=== PATIENT | female | born 1985 | race Hispanic/Latino ===

== ENCOUNTER 2017-01-29 22:33 | Emergency (ER) | payer MEDICAID ==
--- NOTE | 2017-01-29 23:14 | Emergency Department Report ---
ED Alcohol HPI - General Chief Complaint: Alcohol Stated Complaint: AMS Time Seen by Provider: 01/29/17 23:13 Source: EMS (ems notes not available at time of chart dictation) Limitations: Other (intoxicated) - History of Present Illness Initial Comments: This is a 31-year-old female. She is previously unknown to me. History is obtained by speaking to her 2 neighbors, Ms. Hasmukh Wallace; [phone], and Marlin Humphries; [phone]. As per the patient's to neighbors, the patient has a history of alcohol dependency and chronic intoxication. The neighbors brought the patient to a local psychiatric facility for alcohol dependence and intoxication. Apparently while in the waiting room there, the neighbors report that the patient swooned, but did not fall or lose consciousness, did not hit her head. They were instructed to bring the patient to the ER for medical clearance. The patient is grossly intoxicated and denies complaints. She denies chest pain, abdominal pain, headache, homicidality, suicidality. As per the patient's to neighbors, the patient does have a history of seizures, was admitted to a hospital a few weeks ago, they're not sure why. MD Complaint: alcohol intoxication, alcohol dependence Last Drink: unknown Chronic Alcohol Use: Yes Associated Symptoms: denies: abdominal pain, depression, suicidality - Related Data Allergies Allergy/AdvReac Type Severity Reaction Status Date / Time No Known Allergies Allergy Unverified 01/29/17 23:43 ED Review of Systems ROS: Stated complaint: AMS Other details as noted in HPI Comment: Unobtainable due to pts medical conditions Psychiatric: denies: homicidal thoughts, suicidal thoughts ED Physical Exam - General Limitations: Other (intoxicated, etoh on breath) General appearance: alert, in no apparent distress - Head Head exam: Present: atraumatic, normocephalic - Eye Eye exam: Present: normal appearance, EOMI. Absent: nystagmus - ENT ENT exam: Present: normal exam, normal orophraynx, mucous membranes moist, normal external ear exam - Neck Neck exam: Present: normal inspection, full ROM. Absent: tenderness, meningismus - Respiratory Respiratory exam: Present: normal lung sounds bilaterally. Absent: respiratory distress, wheezes, rales, rhonchi, stridor, chest wall tenderness, accessory muscle use, decreased breath sounds, prolonged expiratory - Cardiovascular Cardiovascular Exam: Present: regular rate, normal rhythm, normal heart sounds. Absent: bradycardia, tachycardia, irregular rhythm, systolic murmur, diastolic murmur, rubs, gallop - GI/Abdominal GI/Abdominal exam: Present: soft, normal bowel sounds. Absent: distended, tenderness, guarding, rebound, rigid, pulsatile mass - Extremities Exam Extremities exam: Present: normal inspection, full ROM, normal capillary refill. Absent: tenderness, pedal edema, joint swelling, calf tenderness - Back Exam Back exam: Present: normal inspection, full ROM. Absent: tenderness, CVA tenderness (R), CVA tenderness (L), muscle spasm, paraspinal tenderness, vertebral tenderness - Neurological Exam Neurological exam: Present: oriented X3, other (Extraocular movements intact. Tongue midline. No facial droop. Facial sensation intact to light touch in the V1, V2, V3 distribution bilaterally. 5 and 5 strength in 4 extremities.. Sensation is intact to light touch in 4 extremities.) - Psychiatric Psychiatric exam: Present: normal affect, normal mood. Absent: homicidal ideation, suicidal ideation - Skin Skin exam: Present: warm, dry, intact, normal color. Absent: rash ED Course Vital Signs 01/29/17 01/29/17 01/29/17 23:06 23:10 23:17 Temperature 98.9 F Pulse Rate 79 Respiratory Rate Blood Pressure 107/71 107/71 107/71 Blood Pressure [Left] O2 Sat by Pulse 98 98 Oximetry 01/29/17 01/29/17 01/29/17 23:20 23:29 23:31 Temperature Pulse Rate Respiratory 18 Rate Blood Pressure 99/59 107/71 Blood Pressure [Left] O2 Sat by Pulse 83 L Oximetry 01/29/17 01/29/17 01/30/17 23:38 23:55 00:43 Temperature Pulse Rate Respiratory 18 Rate Blood Pressure 107/71 107/71 Blood Pressure [Left] O2 Sat by Pulse Oximetry 01/30/17 01/30/17 01/30/17 01:04 01:49 01:50 Temperature Pulse Rate Respiratory Rate Blood Pressure 107/71 107/71 98/66 Blood Pressure [Left] O2 Sat by Pulse Oximetry 01/30/17 01/30/17 01/30/17 01:59 02:02 02:45 Temperature 98 F Pulse Rate 74 Respiratory 18 Rate Blood Pressure 106/65 94/54 Blood Pressure 106/75 [Left] O2 Sat by Pulse 100 98 Oximetry 01/30/17 01/30/17 01/30/17 03:00 03:15 03:21 Temperature Pulse Rate Respiratory Rate Blood Pressure 90/55 85/53 87/54 Blood Pressure [Left] O2 Sat by Pulse 99 Oximetry 01/30/17 01/30/17 01/30/17 03:30 03:54 04:43 Temperature Pulse Rate Respiratory Rate Blood Pressure 89/53 99/63 95/59 Blood Pressure [Left] O2 Sat by Pulse 96 Oximetry 01/30/17 01/30/17 01/30/17 04:50 05:00 05:10 Temperature Pulse Rate Respiratory Rate Blood Pressure 87/56 85/58 85/58 Blood Pressure [Left] O2 Sat by Pulse 99 100 99 Oximetry 01/30/17 01/30/17 01/30/17 05:20 05:30 05:40 Temperature Pulse Rate Respiratory Rate Blood Pressure 87/60 87/49 87/49 Blood Pressure [Left] O2 Sat by Pulse 99 99 99 Oximetry 01/30/17 01/30/17 01/30/17 05:50 06:00 06:10 Temperature Pulse Rate Respiratory Rate Blood Pressure 84/55 87/50 84/55 Blood Pressure [Left] O2 Sat by Pulse 98 97 Oximetry 01/30/17 01/30/17 01/30/17 06:20 06:30 06:40 Temperature Pulse Rate Respiratory Rate Blood Pressure 89/58 91/56 91/56 Blood Pressure [Left] O2 Sat by Pulse 97 98 98 Oximetry 01/30/17 01/30/17 01/30/17 06:50 07:00 09:03 Temperature Pulse Rate 109 H Respiratory 16 Rate Blood Pressure 90/58 90/59 Blood Pressure 93/66 [Left] O2 Sat by Pulse 98 98 98 Oximetry - Reevaluation(s) Reevaluation #1: 01/29/17 23:49 differential diagnosis: Alcohol intoxication, polysubstance abuse, medical clearance for psychiatric placement Assessment and plan: 31-year-old female who is alcohol intoxicated, brought to the hospital by neighbors for alcohol intoxication. Uncertain if she fell prior to arrival. The neighbors do not think that she fell. Patient has a nonfocal neurologic examination. She does not require 1013 at this time. She is somewhat agitated. required Valium. She is not homicidal or suicidal. We will check basic laboratory studies, noncontrast CT scan of the brain and cervical spine. We will reassess. Reevaluation #2: 01/30/17 05:29 CT scan of the brain and cervical spine negative. The crisis team is paged. At this point in time, I see no immediate medical contraindication to detox therapy. ED Medical Decision Making - Lab Data Result diagrams: 01/29/17 23:36 01/29/17 23:36 - EKG Data -: EKG Interpreted by Me EKG shows normal: sinus rhythm, axis, intervals, QRS complexes, ST-T waves - EKG Data When compared to previous EKG there are: previous EKG unavailable - Radiology Data Radiology results: pending CT scan of the brain and cervical spine negative Critical care attestation.: If time is entered above; I have spent that time in minutes in the direct care of this critically ill patient, excluding procedure time. ED Disposition Clinical Impression: Alcohol intoxication Qualifiers: Complication of substance-induced condition: uncomplicated Qualified Code(s): F10.920 - Alcohol use, unspecified with intoxication, uncomplicated Disposition: DC/TX PSY HOSP/PSY UNIT Is pt being admited?: No Does the pt Need Aspirin: No Condition: Good Referrals: PRIMARY CARE, [Primary Care Provider] - 3-5 Days
[2017-01-29] MEDS ORDERED: VALIUM ONE (23:30)
[2017-01-29] MEDS ORDERED: VALIUM IV ONE (23:35)
[2017-01-30 00:02] LABS: Hematocrit 42.1 % (30.3-42.9); Mean Corpuscular HGB Conc 33 % (30-34); Mean Corpuscular Hemoglobin 32 pg (28-32); Mean Corpuscular Volume 96 fl (79-97); Platelet Count 233 K/mm3 (140-440); Red Blood Count 4.37 M/mm3 (3.65-5.03); Red Cell Distribution Width 13.6 % (13.2-15.2); White Blood Count 6.6 K/mm3 (4.5-11.0)
[2017-01-30 00:15] LABS: BUN/Creatinine Ratio 7.14; Blood Urea Nitrogen 5 mg/dL (7-17); Carbon Dioxide 24 mmol/L (22-30); Chloride 107.8 mmol/L (98-107); Glucose 96 mg/dL (65-100); Sodium 147 mmol/L (137-145)
[2017-01-30 00:18] LABS: Anion Gap 19 mmol/L
--- NOTE | 2017-01-30 02:05 | Admit Criteria Form ---
Admission Criteria Documentation: SUBSTANCE ABUSE Clinical Indications for Admission to Inpatient Care (Place 'X' for any and all applicable criteria): Admission is indicated due to ANY ONE of the following(1)(2)(3)(4)(5): [ ]I. Delirium due to alcohol or sedative A withdrawal B ( Also use Delirium Criteria as appropriate)1,6,7 [ ]II. Alcohol or sedative withdrawal with high-risk indicator as manifested by ALL of the following1,3,6,7 [ ]a) Signs of withdrawal as indicated by ANY ONE of the following: [ ]i) Heart rate greater than 100 beats per minute [ ]ii) Nausea or vomiting [ ]iii) Other physical signs of alcohol or sedative withdrawal [ ]iv) Tremor [ ](v) Increased perspiration [ ]b) Elevated risk due to a historical or comorbid factor as indicated by ANY ONE of the following: [ ]i) History of delirium due to alcohol or sedative withdrawal [ ]ii) History of repetitive seizures due to alcohol or sedative withdrawal C [ ]iii) Intrinsic seizure disorder (epilepsy) [ ]iv) [ ]v) Comorbid medical condition that can be dangerously destabilized by alcohol or sedative withdrawal (eg, severe cardiac disease) [ ]III. Severe alcohol or sedative withdrawal that is unmanageable at lower level of care, as manifested by ALL of the following1,3,6,7 [ ]a) Marked signs of withdrawal as indicated by ANY ONE of the following: [ ]i) Heart rate greater than 120 beats per minute [ ]ii) Vomiting [ ]iii) Grossly visible tremor [ ]iv) Profuse perspiration [ ]v) Temperature greater than 38.3 degrees C (101 degrees F) [ ]vi) Other marked physical signs of alcohol or sedative withdrawal [ ]b) Signs of withdrawal which require inpatient treatment as indicated by ANY ONE of the following: [ ]i) Inadequate response to pharmacotherapy in emergency department or other appropriate lower level of care [ ]ii) Lower level of care not feasible or appropriate (eg, unavailable or inappropriate to patient condition or treatment history) [ ]IV. Severely complicated opioid withdrawal that requires ezzlez-thc-swwic care as manifested by ALL of the following 1,4,7,11 [ ]a) Vomiting or diarrhea due to opioid withdrawal [ ]b) Marked dehydration or electrolyte abnormality that cannot be corrected (to near normal) in an emergency department or other ambulatory setting (eg, serum K<2.5 mEq/L , serum Na <130 mEq/L [ X]V. Acute toxicity or instability from substance use requiring inpatient care (eg, altered mental status, respiratory depression) that has had inadequate response to, or is judged inappropriate for, treatment at lower level of care (eg, emergency department, observation care) [ ]. Other inpatient medical or psychiatric care is needed due to risk or comorbidity as indicated by ALL of the following(18): [ ]a) Treatment is needed because of patient risk due to ANY ONE of the following: [ ]i) Medical condition (eg, severe cardiac disease) that requires 24-hour monitoring and treatment due to danger of destabilization by alcohol or sedative withdrawal is present [ ]ii) Imminent danger to self is present due to ANY ONE of the following(19)(20)(21): [ ]1) Imminent risk for recurrence of Suicide attempt or act of serious Harm to self is present as indicated by ALL of the following: [ ]A. There has been very recent Suicide attempt or deliberate act of serious Harm to self. [ ]B. There has not been Sufficient relief of the factors that precipitated the attempt or act. [ ]2) Current plan for suicide or serious Harm to self is present. [ ]3) Command auditory hallucinations for suicide or serious Harm to self are present. [ ]4) Patient has persistent Thoughts of suicide or serious Harm to self that cannot be adequately monitored at lower level of care due to ANY ONE of the following[E]: [ ]A. Insufficient behavioral care is available to meet patient needs (such as required provider or lower level facility is not available). [ ]B. Patient characteristics such as high impulsivity or unreliability are present. [ ]C. Environment does not support recovery. [ ]D. Ready access to lethal means [ ]iii) Imminent danger to others is present due to ANY ONE of the following(19)(23)(24): [ ]1) Imminent risk for recurrence of attempt to seriously Harm another is present as indicated by ALL of the following: [ ]A. There has been very recent attempt to seriously Harm another. [ ]B. There has not been Sufficient relief of factors that precipitated the attempt or act. [ ]2) Current plan for homicide or serious Harm to another is present. [ ]3) Command auditory hallucinations or paranoid delusions contributing to risk for homicide or serious Harm to another are present. [ ]4) Patient has persistent thoughts of homicide or serious Harm to another that cannot be adequately monitored at lower level of care because of ANY ONE of the following[E]: [ ]A. Insufficient behavioral care is available to meet patient needs (such as required provider or lower level facility is not available). [ ]B. High impulsivity or unreliability is present. [ ]C. Environment does not support recovery. [ ]D. Ready access to lethal means [ ]iv) Severe dysfunction in daily living related to substance use disorder as indicated by ANY ONE of the following(33): [ ]a) Extreme deterioration in social interactions (eg , threatening behaviors with little or no provocation) [ ]b) Complete withdrawal from all social interactions [ ]c) Complete neglect of self-care with associated impairment in physical status [ ]d) Extreme disruption in vegetative function (eg, life-sustaining functions such as eating) [ ]e) Complete inability to maintain any appropriate aspect of personal responsibility in any adult roles (eg, occupational, parental ) [ ]v) Other emotional, behavioral, or cognitive symptoms of sufficient severity to preclude ability to engage in recovery without 24-hour monitoring and treatment are present. [ ]vi) Patient requires monitoring due to substance use in combination with medical, psychiatric, or environmental factors that prevent adequate management at lower level of care as indicated by ALL of the following: [ ]1) Significant substance use effects, medical conditions, or psychiatric comorbidities are present as indicated by ANY ONE of the following [ ]A. Substance toxicity or withdrawal requires medical monitoring. [ ]B. Medical comorbidity requires medical monitoring for destabilization due to alcohol or sedative withdrawal. [ ]C. Emotional, behavioral, or cognitive symptoms of sufficient severity to limit or preclude ability to engage in treatment are present. [ ]2) Conditions, barriers, or environmental factors preventing treatment at lower level of care are present as indicated by ANY ONE of the following: [ ]A. Psychiatric comorbidity or opposition to treatment requires 24-hour setting to ensure adherence with medical treatment or adequate motivating interventions. [ ]B. Severe behavioral problems (eg, escalating relapse behaviors, acute psychiatric or substance use crisis, inability to recognize signs and symptoms of relapse ) require 24-hour setting for relapse prevention.[F] [ ]C. Living environment outside of 24-hour setting prevents recovery (eg, abuse, victimization, patient inability to cope). [ ]b Treatment situation and needs are appropriate for inpatient level ( instead of using lower level of care) as indicated by ANY ONE of the following( 25)(26)(27): [ ]i) Patient is unwilling to participate voluntarily and requires treatment (eg, legal commitment) in involuntary unit.(23) [ ]ii) Voluntary treatment at lower level is not feasible (eg, lower level care unavailable or inappropriate for patient condition). [ ]iii) Physical restraint, seclusion, or other involuntary control is needed (eg, actively violent patient for whom treatment in an involuntary unit is deemed necessary in accord with applicable medical and legal criteria).(23) [ ]iv) [id number] medical or nursing care to address symptoms and initiate interventions is required; specific need is identified. Extended stay beyond goal length of stay may be needed for: [ ]a) Onset of delirium [ ]b) Recurrent seizures [ ]c) Persistent severe alcohol or sedative withdrawal [ ]d) Persistent dangerous behavior The original [facility] content created by [employer] has been revised. The portions of the content which have been revised are identified through the use of italic text or in bold, and [email or web address] has neither reviewed nor approved the modified material. All other unmodified content is copyright [email or web address]. Please see references footnoted in the original [email or web address] edition 2016 Admission Criteria Met: Yes
[2017-01-30] MEDS ORDERED: REGLAN ONE (02:21)
[2017-01-30] MEDS ORDERED: REGLAN IV ONE (02:25)
[2017-01-30] MEDS ORDERED: HALDOL ONE (02:35)
[2017-01-30] MEDS ORDERED: HALDOL IM ONE (02:53)
[2017-01-30 02:59] LABS: Urine Drugs of Abuse Note Disclamer
[2017-01-30 03:30] LABS: Bacteria,Urine 1+ /HPF (Negative); Bilirubin,Urine NEG (Negative); Blood,Urine SM (Negative); Ketones,Urine NEG (Negative); Leukocyte Esterase,Urine NEG (Negative); Mucus,Urine FEW /HPF; Nitrite,Urine NEG (Negative); Protein,Urine <15 mg/dL mg/dL (Negative); Urobilinogen,Urine < 2.0 mg/dL (<2.0); WBC,Urine < 1.0 /HPF (0.0-6.0)
[2017-01-30] MEDS ORDERED: NACL 0.9% 1000 ML 1,000 ML ONE ×2 (03:31→06:12)
[2017-01-30] MEDS ORDERED: NACL 0.9% 1000 ML 2,000 ML IV ONE (04:21)
--- NOTE | 2017-01-30 04:57 | Cat Scan Report ---
FINAL REPORT PROCEDURE: CT HEAD/BRAIN WO CON TECHNIQUE: Computerized tomography of the head was performed without contrast material. HISTORY: etoh ? fall COMPARISON: No prior studies are available for comparison. FINDINGS: Skull and scalp: Normal. Paranasal sinuses: Normal. Ventricles and subarachnoid spaces: Normal. Cerebrum: No evidence of hemorrhage, acute infarction or mass . Cerebellum and brainstem: No evidence of hemorrhage, acute infarction or mass. Vasculature: Normal. Comments: None. IMPRESSION: Normal Examination
--- NOTE | 2017-01-30 05:17 | Cat Scan Report ---
FINAL REPORT PROCEDURE: CT CERVICAL SPINE WO CON TECHNIQUE: Computerized tomography of the cervical spine was performed from the skull base to T1 without contrast material. HISTORY: etoh ? fall COMPARISON: No prior studies are available for comparison. FINDINGS: C1-2: No significant abnormality. C2-3: No significant abnormality. C3-4: No significant abnormality. C4-5: No significant abnormality. C5-6: No significant abnormality. C6-7: No significant abnormality. C7-T1: No significant abnormality. Other: The skull base and the foramen magnum are intact. Cervical vertebrae are intact. There are no fractures or malalignments. Disc spaces are normal. Prevertebral soft tissues are normal in thickness.. IMPRESSION: No significant abnormality.
[2017-01-30 09:04] VITALS: BP 93/66
--- NOTE | 2017-01-30 12:15 | Consultation ---
History of Present Illness - Reason for Consult Consult date: 01/30/17 Reason for consult: Mental Health Evaluation Requesting physician: DEMETRICE LANGFORD - Chief Complaint Chief complaint: "I want help" - History of Present Psychiatric Illness This is a 31-year-old female. Per the neighbors, the patient has a history of alcohol dependency and chronic intoxication. Today patient is calm and cooperative during the assessment. She stated that she has abused alcohol the past 4 to 6 months along with trying to get off benzos (taking benzos for years) . She stated that she could not remember what happened last night for her to end up at [facility]. Per the ER note her neighbor brought her in because she was intoxicated. She stated that the alcoholism has gotten worse because she have a lot of stressors in her life. One of her main stressors is getting on her feet and getting a job. She denies SI/HI's, AVH's and depression symptoms. She positive for benzos and her alcohol serum is 0.35. She stated that she has a psychiatrist and in the process of tapering off benzos. Medications and Allergies Allergies Allergy/AdvReac Type Severity Reaction Status Date / Time No Known Allergies Allergy Unverified 01/29/17 23:43 Past psychiatric history - Past Medical History Past Medical History: other (melgoza parkinsons white) Past Surgical History: No surgical history - past Psychiatric treatment and history Psych: Anxiety psychiatric treatment history: Inpatient one time for alcohol use. Mother - depression - Social History Social history: other (Live with her fiancee) Mental Status Exam - Vital signs Last Vital Signs Temp 98 F 01/30/17 01:59 Pulse 109 H 01/30/17 09:03 Resp 16 01/30/17 09:03 BP 93/66 01/30/17 09:03 Pulse Ox 98 01/30/17 09:03 - Exam Narrative exam: ROS (+) anxious MSE: Appearance: cooperative, calm Behavior: good eye contact Speech: regular rate and tone Mood: "okay" Affect: congruent to mood Thought Process: linear Thought Content: denies SI/HI's and AVH's Motor Activity: lying in bed Cognition: a/ox 3 Insight: fair Judgment: fair Results Result Diagrams: 01/29/17 23:36 01/29/17 23:36 Abnormal lab results 01/29/17 01/29/17 01/29/17 Range/Units 23:36 23:36 23:36 Sodium 147 H (137-145) mmol/L Chloride 107.8 H (98-107) mmol/L BUN 5 L (7-17) mg/dL Calcium 8.0 L (8.4-10.2) mg/dL Salicylates < 0.3 L (2.8-20.0) mg/dL Plasma/Serum Alcohol 0.35 H (0-0.07) gm% All other labs normal. Assessment and Plan Assessment and plan: Impression: Alcohol Use DO. This is a 31-year-old female. Per the neighbors, the patient has a history of alcohol dependency and chronic intoxication. Today patient is calm and cooperative during the assessment. She stated that she has abused alcohol the past 4 to 6 months along with trying to get off benzos ( taking benzos for years). She stated that she could not remember what happened last night for her to end up at [facility]. She denies SI/HI's and AVH's. DD: Depressive DO Recommendation/Plan: Patient was given information about local rehab services in the area. Discussed the importance of abstaining from alcohol. Also, discussed not to take benzos with alcohol. Patient was given the option to go to [facility] for detox, she refused. She stated that she will use [facility] another rehab service locally.
[2017-01-30 12:39] LABS: Alanine Aminotransferase 21 units/L (7-56); Alkaline Phosphatase 48 units/L (35-129)
== END 2017-01-30 12:50 ==
LOC: ED 22:33
DX: F10.920 Alcohol use, unspecified with intoxication, uncomplicated (principal)
CPT/HCPCS: 36415; 70450; 72125; 80048; 80307; 81001; 84075; 84450; 84460; 84703; 85027; 93005; 93010; 96361; 96372; 96374; 96375; 99285; G0480; J1630; J2765; J3360; J7030; 80320